=== PATIENT | female | born 1950 | race American Indian/Alaskan Native ===

== ENCOUNTER 2017-08-06 15:26 | Outpatient (CLI) | payer OTHER | END 2017-08-06 15:27 | disposition home or self-care (01) | LOC: LABHHL 15:26 | PROVIDERS: ATTEND Surgery | DX: N63.10 Unspecified lump in the right breast, unspecified quadrant (principal); R92.0 Mammographic microcalcification found on diagnostic imaging of breast | CPT/HCPCS: 88305 ==

== ENCOUNTER 2020-11-03 10:09 | Outpatient (CLI) | payer MEDICARE, OTHER ==
--- NOTE | 2020-11-03 12:03 | Mammography Report ---
DIGITAL SCREENING MAMMOGRAM WITH CAD, 11/03/2020 CLINICAL INFORMATION / INDICATION: Routine screening mammography. TECHNIQUE: Digital bilateral 2D mammography was obtained in the craniocaudal and mediolateral obliqu e projections. This examination was interpreted with the benefit of Computer-Aided Detection analysis . COMPARISON: 10/29/2018, 10/27/2017 FINDINGS: Breast Density: The breasts are extremely dense, which lowers the sensitivity of mammography. No dominant mass, suspicious calcifications, or architectural distortion in the left breast. There is the suggestion of a 5 cm oval benign-appearing mass in the upper outer quadrant of the right breast. This will need further evaluation with right breast ultrasound. IMPRESSION: There is a 5 cm oval masslike density throughout the right upper outer quadrant of the br east. Recommend further evaluation with right breast ultrasound. Follow up recommendation: Ultrasound BI-RADS Category 0: Incomplete. Needs additional imaging evaluation and/or prior mammograms for isacc nunez. A "normal" or negative report should not discourage follow up or biopsy of a clinically significant f inding. A written summary of these findings will be mailed to the patient. The patient will be entered into a mammography reporting system which will generate a reminder letter for the patient's next appointmen t at the appropriate interval. The [employer] recommends yearly mammograms starting at age 40 and continuing as l corie as a woman is in good health. Breast MRI is recommended for women with an approximate 20-25% or greater lifetime risk of breast cancer, including women with a strong family history of breast or ova felix cancer or who have been treated for Hodgkin's disease. Signer Name: Kim Yin MD Signed: 11/03/2020 11:59 AM Workstation Name: [id number]
== END 2020-11-03 10:10 | disposition home or self-care (01) ==
LOC: SPVWC 10:09
PROVIDERS: ATTEND Surgery
DX: Z12.31 Encounter for screening mammogram for malignant neoplasm of breast (principal)
CPT/HCPCS: 77063; 77067

== ENCOUNTER 2020-12-06 08:05 | Outpatient (CLI) | payer MEDICARE ==
--- NOTE | 2020-12-06 09:21 | Mammography Report ---
RIGHT DIGITAL DIAGNOSTIC MAMMOGRAM WITH CAD , 12/06/2020 RIGHT LIMITED BREAST ULTRASOUND CLINICAL INFORMATION / INDICATION: Abnormal recent screening mammogram. SPOTS PER RADIOLOGIST TECHNIQUE: Digital right mammographic imaging was performed. Spot compression views were obtained. [facility] ultrasound was performed. This examination was interpreted with the benefit of Computer-Aided D etection (CAD) analysis. COMPARISON: Multiple prior mammograms including the most recent mammogram of 11/03/2020, through older mammogram, 01/01/2016 FINDINGS: Breast Density: The breasts are extremely dense, which lowers the sensitivity of mammography. MAMMOGRAPHIC FINDINGS: Spot compression views show persistent oval masslike density throughout the up per outer quadrant of the right breast measuring approximately 5 cm. Review of older mammograms sugge st that this finding was present although better visualized with 3-D [employer] imaging. I believ e the finding is related to focal area of dense fibroglandular tissue.. ULTRASOUND FINDINGS: Targeted ultrasound evaluation was performed of the area of interest. In the 1 1:00 location of the right breast, 2 cm from nipple, there is oval area of heterogeneous tissue with masslike appearance. As noted mammographically, I believe this is a focal area of dense fibroglandula r tissue. Other less likely possibility is fibroadenoma. IMPRESSION: Probably benign findings. Masslike area noted in the upper outer quadrant in the right br east is felt to be an island of extremely dense fibroglandular tissue. Recommend 6 month follow-up ri [facility] 3-D mammogram to establish stability. Follow up recommendation: Short term follow up in 6 months. BI-RADS Category 3: Probably Benign. Followup in 6 months. A "normal" or negative report should not discourage follow up or biopsy of a clinically significant f inding. A written summary of these findings will be mailed to the patient. The patient will be entered into a mammography reporting system which will generate a reminder letter for the patient's next appointmen t at the appropriate interval. According to the [employer], yearly mammograms are recommended starting at age 40 and continuing as long as a woman is in good health. Breast MRI is recommended for women with an mariah roximately 20-25% or greater lifetime risk of breast cancer, including women with a strong family his tory of breast or ovarian cancer and women who have been treated for Hodgkin's disease. Signer Name: Kim Yin MD Signed: 12/06/2020 9:16 AM Workstation Name: [id number]
== END 2020-12-06 08:06 | disposition home or self-care (01) ==
LOC: SPVWC 08:05
PROVIDERS: ATTEND Surgery
DX: R92.2 Inconclusive mammogram (principal)